=== PATIENT | female | born 1940 | race Caucasian/White ===

== ENCOUNTER 2024-04-24 19:41 | Emergency (ER) | payer MEDICARE, OTHER ==
[2024-04-24 20:28] LABS: BASOPHILS PERCENT AUTO 0.3 % (0.0-1.0); EOSINOPHILS ABSOLUTE AUTO 0.6 K/mm3 (0.0-0.4); EOSINOPHILS PERCENT AUTO 4.6 % (0.0-6.0); HEMATOCRIT 35.8 % (37.0-47.0); HEMOGLOBIN 11.7 gm/dl (12.0-16.0); IMMATURE GRAN ABSOLUTE AUTO 0.05 K/mm3 (0.00-0.05); IMMATURE GRAN PERCENT AUTO 0.4 % (0.0-0.4); LYMPHOCYTES ABSOLUTE AUTO 1.1 K/mm3 (1.0-4.8); LYMPHOCYTES PERCENT AUTO 8.2 % (24.0-44.0); MEAN CORPUSCULAR HEMOGLOBIN 28.6 pg (28.0-32.0); MEAN CORPUSCULAR HGB CONC 32.7 g/dl (32.0-36.0); MEAN CORPUSCULAR VOLUME 87.5 fl (83.0-99.0); MEAN PLATELET VOLUME 10.4 fl (9.4-12.3); MONOCYTES ABSOLUTE AUTO 1.4 K/mm3 (0.0-0.8); MONOCYTES PERCENT AUTO 10.3 % (0.0-8.0); NEUTROPHILS ABSOLUTE AUTO 10.1 K/mm3 (1.8-7.7); NEUTROPHILS PERCENT AUTO 76.2 % (41.0-71.0); PLATELET COUNT,PLT 157 K/mm3 (150-400); RED BLOOD CELL COUNT 4.09 M/mm3 (4.10-5.30); WHITE BLOOD CELL COUNT,WBC 13.18 K/mm3 (3.9-11.3)
[2024-04-24 20:47] LABS: A/G RATIO 0.7 (1-2); ALBUMIN 2.6 g/dl (3.4-5.0); ANION GAP 10.9 (5-15); BILIRUBIN TOTAL 0.3 mg/dL (0.2-1.0); BUN/CREATININE RATIO 13.6 (14-18); CALCIUM 8.5 mg/dL (8.5-10.1); CREATININE 1.1 mg/dL (0.55-1.02); EST CRCL DRUG DOSING (CG) 37.55 mL/min; POTASSIUM,K 3.9 mEq/L (3.5-5.1); PROTEIN TOTAL,TP 6.4 g/dl (6.4-8.2)
[2024-04-24 20:52] LABS: LACTIC ACID 0.3 mmol/L (0.4-2.0)
[2024-04-24 21:08] LABS: APPEARANCE,URINE CLEAR (Clear); BILIRUBIN,URINE 1+ (Negative); COLOR,URINE DARK YELLOW (Yellow); GLUCOSE,URINE NEGATIVE (Negative); KETONES,URINE NEGATIVE (Negative); LEUKOCYTE ESTERASE,URINE TRACE (Negative); NITRITE,URINE NEGATIVE (Negative); OCCULT BLOOD,URINE 2+ (Negative); PROTEIN,URINE 2+ (Negative); UROBILINOGEN,URINE 0.2 (0.2-1.0)
[2024-04-24 21:15] LABS: BACTERIA,URINE MODERATE /hpf (FEW)
[2024-04-24 21:16] LABS: MUCUS,URINE MANY /hpf (FEW)
[2024-04-24] MEDS: diphenhydrAMINE 12.5 MG/5 ML Liquid 5 ML UD Cup PO ONE (22:34)
[2024-04-24] MEDS: Iopamidol 755 Mg/ML 100 ML Bottle IVPUSH ONE (23:45)
[2024-04-25] MEDS: Meropenem 1 GM in Sodium Chloride 0.9% 100 ML IV ONE (02:31)
[2024-04-25] MEDS: VANCOmycin 1.25 GM/250 ML 1.25 GM in Premix Bag 1 BAG IV ONE (02:31)
[2024-04-25] MEDS ORDERED: Donepezil 10 MG Tab PO SCH (09:00)
[2024-04-25] MEDS ORDERED: Pantoprazole 40 MG Tab.CR PO SCH (11:06)
[2024-04-25] MEDS ORDERED: Cholecalciferol (Vitamin D3) 25 MCG Tab PO SCH (11:13)
[2024-04-25] MEDS ORDERED: Diltiazem 240 MG Cap.ER PO SCH (11:13)
[2024-04-25] MEDS ORDERED: Aspirin 81 MG Tab.EC PO SCH (11:14)
[2024-04-25] MEDS ORDERED: Amiodarone 200 MG Tab PO SCH (11:14)
[2024-04-25] MEDS ORDERED: Tiotropium Bromide 4 GM Inhalation Spray (2.5mcg/1 dose; 10 doses) INH SCH (11:15)
[2024-04-25] MEDS ORDERED: Apixaban 5 MG Tab PO SCH (11:16)
[2024-04-25] MEDS ORDERED: Albuterol 6.7 GM Inhaler INH PRN (11:21)
[2024-04-25] MEDS ORDERED: diphenhydrAMINE 25 MG Cap PO SCH (21:00)
[2024-04-25] MEDS ORDERED: Primidone 250 MG Tab PO SCH (21:00)
== END 2024-04-25 11:45 | disposition critical access hospital (66) ==
LOC: JD.ED 19:41
DX: J18.9 Pneumonia, unspecified organism (principal); Z79.899 Other long term (current) drug therapy; Z79.82 Long term (current) use of aspirin; Z79.01 Long term (current) use of anticoagulants
CPT/HCPCS: 36415; 71045; 71045-26; 71275; 71275-26; 80053; 81001; 83605; 85025; 87040; 87086; 87088; 87186; 93005; 93010; 96365; 96366; 96368; 99285; 99285-25; A9270-GY; J2185; J3370; J3490; Q9967